=== PATIENT | female | born 2000 | race Two or more races ===

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

== ENCOUNTER 2021-06-02 18:23 | Emergency (ER) | payer OTHER ==
[~2021-06-02] VITALS: Ht 177.8 cm; Wt 70.3 kg
== END 2021-06-02 21:43 | disposition home or self-care (01) ==
LOC: EMR PED 18:23 → ER 18:23 → EMR PED 21:11
DX: R07.89 Other chest pain (principal)

== ENCOUNTER 2021-12-11 10:16 | Outpatient (CLI) | payer OTHER | END 2021-12-11 10:28 | disposition home or self-care (01) | LOC: RAD 10:16 | PROVIDERS: ATTEND Physical Medicine & Rehabilitation | DX: M54.2 Cervicalgia (principal); M54.6 Pain in thoracic spine ==

== ENCOUNTER 2022-05-11 12:13 | Outpatient (CLI) | payer OTHER | END 2022-05-11 12:26 | disposition home or self-care (01) | LOC: SONOGRAMA 12:13 | PROVIDERS: ATTEND Obstetrics & Gynecology | DX: N91.1 Secondary amenorrhea (principal) ==

== ENCOUNTER 2022-12-12 12:37 | Emergency (ER) | payer OTHER ==
[~2022-12-12] VITALS: Ht 180.3 cm; Wt 72.6 kg
== END 2022-12-12 16:21 | disposition home or self-care (01) ==
LOC: ER 12:37
DX: R51.9 Headache, unspecified (principal)

== ENCOUNTER 2023-04-10 12:31 | Outpatient (CLI) | payer OTHER | END 2023-04-10 12:32 | disposition home or self-care (01) | LOC: LAB 12:31 | PROVIDERS: ATTEND Radiology Diagnostic Radiology | DX: I67.1 Cerebral aneurysm, nonruptured (principal) ==

== ENCOUNTER 2023-04-12 07:33 | Outpatient (CLI) | payer OTHER | END 2023-04-12 14:31 | disposition home or self-care (01) | LOC: TOM 07:33 | PROVIDERS: ATTEND Radiology Vascular & Interventional Radiology | DX: I67.1 Cerebral aneurysm, nonruptured (principal) | CPT/HCPCS: 70460; Q9965; 70496 ==

== ENCOUNTER 2023-12-19 14:51 | Emergency (ER) | payer OTHER ==
[~2023-12-19] VITALS: Ht 180.3 cm; Wt 72.6 kg
[2023-12-19] MEDS ORDERED: KETOROLAC TROMETHAMINE 15 MG VIAL IV STA (16:47)
[2023-12-19] MEDS ORDERED: METHYLPREDNISOLONE SOD SUCC 40 MG VIAL IV STA (16:47)
[2023-12-19] MEDS ORDERED: ORPHENADRINE CITRATE 30 MG/ML AMPUL IM STA (16:48)
[2023-12-19] MEDS ORDERED: METAXALONE800 MG PO (18:49)
[2023-12-19] MEDS ORDERED: MEDROLPACK PO (18:49)
[2023-12-19] MEDS ORDERED: ADVIL DUAL ACT1 EACH PO (18:49)
== END 2023-12-19 19:16 | disposition home or self-care (01) ==
LOC: ER
DX: S13.4XXA Sprain of ligaments of cervical spine, initial encounter (principal); V49.9XXA Car occupant (driver) (passenger) injured in unspecified traffic accident, initial encounter; Y93.89 Activity, other specified; Y92.89 Other specified places as the place of occurrence of the external cause; Y99.8 Other external cause status